=== PATIENT | female | born 1990 | race Caucasian/White ===

== ENCOUNTER 2021-07-08 15:02 | Emergency (ER) | payer OTHER, SELFPAY ==
[2021-07-08 15:48] VITALS: BP 95/67; PULSE 102; RESP 18; TEMP 37.7; O2SAT 98; BMI 21.4
[2021-07-08 16:13] LABS: MANUAL DIFF FLAG NO
[2021-07-08 16:15] LABS: Basophils Percent Auto 0.2 % (0-2); Eosinophils Absolute Auto 0.1 X10*3/uL (0.0-0.4); Eosinophils Percent Auto 1.1 % (0-4); Hematocrit 36.8 % (37.0-47.0); Hemoglobin 11.7 g/dl (12.0-16.0); Imm Gran Abs Auto 0.04 X10*3/uL (0.00-0.03); Imm Gran Pct Auto 0.3 % (0.0-0.4); Lymphocytes Absolute Auto 1.8 X10*3/uL (1.2-4.9); Lymphocytes Percent Auto 14.5 % (20-40); Mean Corpuscular HGB Conc 31.8 g/dl (31.0-35.0); Mean Corpuscular Hemoglobin 29.1 pg (27.0-33.0); Mean Corpuscular Volume 91.5 fL (80.0-98.0); Mean Platelet Volume 9.9 fL (9.4-12.3); Monocytes Absolute Auto 0.9 X10*3/uL (0.1-1.2); Neutrophils Absolute Auto 9.4 x10*3/uL (2.0-8.3); Neutrophils Percent Auto 76.9 % (45-73); Platelet Count 314 X10*3/uL (160-400); Red Blood Count 4.02 X10*6/uL (4.20-5.50); Red Cell Distribution Width 13.1 % (11.0-16.0); White Blood Count 12.3 X10*3/uL (4.8-10.8)
[2021-07-08 16:28] LABS: Lactic Acid 0.8 mmol/L (0.5-2.0)
[2021-07-08 16:34] LABS: Alanine Aminotransferase 18 U/L (0-31); Alkaline Phosphatase 60 U/L (39-117); Anion Gap 11 (12-20); Aspartate Amino Transferase 27 U/L (5-31); Blood Urea Nitrogen 10 mg/dL (9-16); Calcium 9.6 mg/dL (8.4-10.2); Carbon Dioxide 27 mmol/L (22-29); Chloride 105 mmol/L (96-108); Creatinine Clr Calc Pharmacy 69.9; Estimated Glomerular Filt Rate > 60; Glucose Random 91 mg/dL (60-115); Magnesium 2.2 mg/dL (1.6-2.6); Potassium 4.6 mmol/L (3.3-5.1); Sodium 138 mmol/L (135-145); Total Protein 7.7 g/dL (6.5-8.0)
--- NOTE | 2021-07-08 17:22 | ED_ITS ---
HPI - Skin/Abscess/Foreign Bdy General Chief complaint: Skin/Abscess/Foreign Body Stated complaint: painful areas all over Time Seen by Provider: 07/08/21 15:57 Source: patient Mode of arrival: ambulatory Limitations: no limitations History of Present Illness HPI narrative: 31-year-old female history of active IV drug use presents with multiple abscesses to her neck, face, scalp and arms. Wounds have been there a pproximately. No prior history abscesses like this in the past, and also reports dysuria. MD complaint: abscess/boil and lesion Onset (ago): day(s) (3) Tetanus up to date: no Location: face, neck, back, LUE and RUE Severity: moderate Severity scale (1-10): 5 Quality: aching Pain Consistency: constant Relieving factors: none Exacerbating factors: palpation and movement Context: IVDA Associated symptoms: other (Withdrawals) Treatments prior to arrival: attempted to drain pus at home Related Data Previous Rx's Medication Instructions Recorded amoxicillin 875 mg-potassium 1 tab PO Q12H 10 Days #20 tab 07/08/21 clavulanate 125 mg tablet (Augmentin) doxycycline monohydrate 100 mg 100 mg PO BID 10 Days #20 cap 07/08/21 capsule Allergies Allergy/AdvReac Type Severity Reaction Status Date / Time Unable to Assess Allergy Unverified 07/08/21 15:57 Review of Systems Review of Systems: Constitutional: Positive withdrawal symptoms, No Fever, positive Chills ENT/Mouth: No sore throat, No Rhinorrhea Eyes: No Eye Pain, No Swelling, No Redness Cardiovascular: No Chest Pain, No SOB Respiratory: No Cough, No Sputum Gastrointestinal: No Nausea, No Vomiting, No Diarrhea, No abdominal Pain Genitourinary: No Dysuria, No Hematuria Musculoskeletal: No joint pain, No Myalgias, No Joint Swelling Skin: Positive multiple Skin Lesions to the back of the neck, arms, face and scalp. No rash Neuro: No Weakness, No Numbness, No Loss of Consciousness, No Dizziness, No Headache Psych: No Anxiety, No Depression, No SI/HI/AH/VH Heme/Lymph: No Bruising, No Bleeding,No Lymphadenopathy Endocrine: No Polyuria, No Polydipsia Yes all other systems are reviewed and are negative PMFSH Past Medical History Attestation statement: The following information was validated with the patient. Source: old records reviewed Social History Social History Patient Tobacco Use Status: Current everyday Tobacco user Use of substances other than those prescribed or required for medical reasons: Yes Substance Use Type: Crack/Cocaine and Heroin Substance Use Frequency: Daily Substance Use Frequency Other:: last used was 07/08/21 at 0300 Advance Directives: No Advance Directives Information Provided: No Patient : No Physical Exam Vital Signs: Vital Signs: Last Vital Signs Temp 99 F 07/08/21 17:40 Pulse 96 07/08/21 18:11 Resp 18 07/08/21 18:11 BP 97/53 L 07/08/21 18:11 Pulse Ox 98 07/08/21 18:11 BMI result Body Mass Index 21.4 Appearance: Alert. Oriented X3. Moderate distress secondary withdrawal symptoms. Eyes: Pupils equal, round and reactive to light. Sclera nonicteric. EOMI. ENT: Pharynx normal. Dry mucous membranes. Neck: Normal inspection. Neck supple. Tenderness to the trapezius bilaterally, 1 cm area of induration with scabbed over draining pustule. Full range of motion, no nuchal rigidity. No vertebral step-offs. CVS: Tachycardic heart rate and rhythm. Brisk capillary refill to all extremities. Respiratory: No respiratory distress. Breath sounds normal. Abdomen: Soft and nontender. Skin: Skin warm and dry. Multiple track hunter to hands and arms. Multiple picking lesions to the arms bilaterally, right side of face, and back of neck. Extremities: No lower extremity edema. Gait well-balanced well coordinated. Neuro: No motor deficit. No sensory deficit. Cranial nerves 2-12 intact. Course Course Course Narrative: 31-year-old female presents with multiple areas of abscesses to her face, scalp, neck and arms. Has had these lesions for approximately 3 days. Also reports having dysuria but does not believe that she is at risk for STDs at this time. No purulent drainage from the abscess sites, there are pustules with scabbed head and they appear to have been draining. Patient has full range of motion, no nuchal rigidity, gait is well balanced well coordinated. Low likelihood of meningitis. White count 12.3, H&H 11.7/36. Chemistries are normal. Dr. Bhardwaj also at bedside to evaluate, and agrees with p.o. antibiotics. No imaging required at this as patient does have full range of motion with a low likelihood of meningitis or sepsis at this time. Patient does appear to be withdrawing. Was offered rehab-detox. Patient refused however I did ask high school assistant football coach to go and speak with her. Patient states that she does not have access to antibiotics. I did discuss this with case management, case management and high school assistant football coach will try to come up with a plan help her access medications. 5:40 p.m. high school assistant football coach discussed options with patient. She is open to rehab. Order for COVID testing, and Tdap vaccine will be updated at this time. Patient given p.o. fluids and sandwich. Suboxone started at this time. Last use was over 24 hours ago. 6:33 p.m. patient does have a place to stay overnight. Her plan is to present to the Suboxone clinic at this facility in the morning. Discharge her to home with her prescriptions so she can go to the pharmacy of her choosing. Patient verbalized understanding of and agrees to plan of care to discharge home MDM - Skin/Abscess/Foreign Bdy Differential Diagnosis Differential diagnosis: Likely abscess of skin or subcutaneous tissue and cellulitis Medical Records Attestation: I reviewed the patient's medical records. Lab Data Attestation: I reviewed the patient's lab results. Result diagrams: 07/08/21 16:08 07/08/21 16:08 Labs: Lab Results 07/08/21 07/08/21 07/08/21 Range/Units 16:08 16:08 16:08 WBC 12.3 H (4.8-10.8) X10*3/uL RBC 4.02 L (4.20-5.50) X10*6/uL Hgb 11.7 L (12.0-16.0) g/dl Hct 36.8 L (37.0-47.0) % MCV 91.5 (80.0-98.0) fL MCH 29.1 (27.0-33.0) pg MCHC 31.8 (31.0-35.0) g/dl RDW 13.1 (11.0-16.0) % Plt Count 314 (160-400) X10*3/uL MPV 9.9 (9.4-12.3) fL Immature Gran % (Auto) 0.3 (0.0-0.4) % Neut % (Auto) 76.9 H (45-73) % Lymph % (Auto) 14.5 L (20-40) % [place] % (Auto) 7.0 (2-11) % Eos % (Auto) 1.1 (0-4) % Baso % (Auto) 0.2 (0-2) % Lymph # (Auto) 1.8 (1.2-4.9) X10*3/uL [place] # (Auto) 0.9 (0.1-1.2) X10*3/uL Eos # (Auto) 0.1 (0.0-0.4) X10*3/uL Baso # (Auto) 0.0 (0.0-0.2) X10*3/uL Abs Immat Gran (auto) 0.04 H (0.00-0.03) X10*3/uL Absolute Neuts (auto) 9.4 H (2.0-8.3) x10*3/uL Absolute Nucleated RBC 0.000 (0.0-0.012) X10*3/uL Nucleated RBC % (auto) 0.0 (0.0-0.2) /100WBC Sodium 138 (135-145) mmol/L Potassium 4.6 (3.3-5.1) mmol/L Chloride 105 (96-108) mmol/L Carbon Dioxide 27 (22-29) mmol/L Anion Gap 11 L (12-20) BUN 10 (9-16) mg/dL Creatinine 0.81 (0.5-1.4) mg/dL Estim Creat Clear Calc 69.9 Estimated GFR > 60 Random Glucose 91 (60-115) mg/dL Lactic Acid 0.8 (0.5-2.0) mmol/L Calcium 9.6 (8.4-10.2) mg/dL Magnesium 2.2 (1.6-2.6) mg/dL Total Bilirubin 1.0 (0.0-1.0) mg/dL AST 27 (5-31) U/L ALT 18 (0-31) U/L Alkaline Phosphatase 60 (39-117) U/L Total Protein 7.7 (6.5-8.0) g/dL Albumin 4.0 (3.5-5.0) g/dL COVID-19 ([facility]) (Negative) COVID-19 Clin Com 07/08/21 Range/Units 18:04 WBC (4.8-10.8) X10*3/uL RBC (4.20-5.50) X10*6/uL Hgb (12.0-16.0) g/dl Hct (37.0-47.0) % MCV (80.0-98.0) fL MCH (27.0-33.0) pg MCHC (31.0-35.0) g/dl RDW (11.0-16.0) % Plt Count (160-400) X10*3/uL MPV (9.4-12.3) fL Immature Gran % (Auto) (0.0-0.4) % Neut % (Auto) (45-73) % Lymph % (Auto) (20-40) % [place] % (Auto) (2-11) % Eos % (Auto) (0-4) % Baso % (Auto) (0-2) % Lymph # (Auto) (1.2-4.9) X10*3/uL [place] # (Auto) (0.1-1.2) X10*3/uL Eos # (Auto) (0.0-0.4) X10*3/uL Baso # (Auto) (0.0-0.2) X10*3/uL Abs Immat Gran (auto) (0.00-0.03) X10*3/uL Absolute Neuts (auto) (2.0-8.3) x10*3/uL Absolute Nucleated RBC (0.0-0.012) X10*3/uL Nucleated RBC % (auto) (0.0-0.2) /100WBC Sodium (135-145) mmol/L Potassium (3.3-5.1) mmol/L Chloride (96-108) mmol/L Carbon Dioxide (22-29) mmol/L Anion Gap (12-20) BUN (9-16) mg/dL Creatinine (0.5-1.4) mg/dL Estim Creat Clear Calc Estimated GFR Random Glucose (60-115) mg/dL Lactic Acid (0.5-2.0) mmol/L Calcium (8.4-10.2) mg/dL Magnesium (1.6-2.6) mg/dL Total Bilirubin (0.0-1.0) mg/dL AST (5-31) U/L ALT (0-31) U/L Alkaline Phosphatase (39-117) U/L Total Protein (6.5-8.0) g/dL Albumin (3.5-5.0) g/dL COVID-19 ([facility]) Negative (Negative) COVID-19 Clin Com See Note Discharge Plan Discharge Clinical Impression: Cellulitis Qualifiers: Site of cellulitis: other site Qualified Code(s): L03.818 - Cellulitis of other sites Abscess of skin or subcutaneous tissue Qualifiers: Site of cutaneous abscess: unspecified site Qualified Code(s): L02.91 - Cutaneous abscess, unspecified UTI (urinary tract infection) Qualifiers: Urinary tract infection type: site unspecified Hematuria presence: without hematuria Qualified Code(s): N39.0 - Urinary tract infection, site not specified Patient Disposition: Home, Self-Care Instructions: Urinary Tract Infection in Women (ED), Cellulitis (ED), Abscess (ED) Additional Instructions: You wereevaluated for multiple areas of draining abscess and cellulitis to your skin. Please take doxycycline 100 mg twice a day for 10 days. Please take Augmentin 875 mg twice a day for the next 10 days. These medications will also cover for your suspected urinary tract infection. Please present to the Suboxone clinic tomorrow morning. Your COVID test was negative. We updated your Tdap vaccine today. Thank you for choosing this emergency department for evaluation. Please follow-up with primary care physician as needed. Return to the emergency department for any new, concerning, or worsening symptoms. Prescriptions: New doxycycline monohydrate 100 mg capsule 100 mg PO BID 10 Days Qty: 20 RF: 0 amoxicillin-pot clavulanate [Augmentin] 875-125 mg tablet 1 tab PO Q12H 10 Days Qty: 20 RF: 0
[2021-07-08 17:40] VITALS: BP 89/44; PULSE 95; RESP 20; TEMP 37.2; O2SAT 98
[2021-07-08 18:11] VITALS: BP 97/53; PULSE 96; RESP 18; O2SAT 98
[2021-07-08] MEDS: diphenhydrAMINE HCL 25 MG TABLET 50 MG PO (18:14)
[2021-07-08] MEDS: Acetaminophen 325 MG TABLET 650 MG PO (18:14)
[2021-07-08] MEDS: Amoxicillin/Potassium Clav 875 MG TABLET PO (18:15)
[2021-07-08] MEDS: Ondansetron ODT 4 MG TAB.RAPDIS TRANSLINGU (18:15)
[2021-07-08] MEDS: Diphth,Pertus(ACell),Tet Adult 0.5 ML SYRINGE IM (18:15)
--- NOTE | 2021-07-08 18:15 | PC.NURSE ---
pt resting in the stretcher, respirations even and unlabored. pt reports last use of heroin was yesterday around 0300, pt does have some abscess on her lower neck upper back area. pain at 9/10. academic coach at bedside speaking to pt, plan for the pt to follow up with suboxone clinic
[2021-07-08] MEDS: Buprenorphine/Naloxone 8/2 mg FILM 1 FILM SUBLINGUAL (18:16)
--- NOTE | 2021-07-08 18:21 | MHC.RECOVSUP ---
? Reason for consult:Recovery Support o?? Current location ED14? o?? Identified substance use concern ?Heroine ?? Withdrawal ?? Support ? Intervention: o?? MAT started or to be started o?? Community resources provided o?? Harm reduction discussion ? Plan: o?? Referral to [facility] o?? Follow up tomorrow? o?? Patient to follow up with [facility] after discharge ? Additional information: Pt. came in with symptoms of withdrawals I was able to advocate for the Pt. Doctor gave her 8mg of suboxzone Informed Pt. about [facility] program Pt. stated that she will go tomorrow to start her suboxzone at [facility].Also gave information about [facility] and other resources. ?
[2021-07-08 18:26] LABS: COVID-19 Test Negative (Negative)
[2021-07-08 20:00] VITALS: BP 97/53; PULSE 96; RESP 18; TEMP 36.6; O2SAT 98
[2021-07-08 22:21] VITALS: BP 96/68; PULSE 79; RESP 16; TEMP 37.1; O2SAT 98
[2021-07-08 23:52] VITALS: BP 95/53; PULSE 78; RESP 16; TEMP 36.9; O2SAT 100
== END 2021-07-09 00:31 | disposition home or self-care (01) ==
PROVIDERS: Nurse Practitioner Family; Physician Assistant; Emergency Provider Internal Medicine
DX: S10.91XA Abrasion of unspecified part of neck, initial encounter (principal); L03.818 Cellulitis of other sites; L02.91 Cutaneous abscess, unspecified; N39.0 Urinary tract infection, site not specified; F11.10 Opioid abuse, uncomplicated; F14.10 Cocaine abuse, uncomplicated; X58.XXXA Exposure to other specified factors, initial encounter; Y93.9 Activity, unspecified; Y92.9 Unspecified place or not applicable; Y99.9 Unspecified external cause status; Z20.822 Contact with and (suspected) exposure to COVID-19; Z79.899 Other long term (current) drug therapy
CPT/HCPCS: 36415; 80053; 83605; 83735; 85025; 87040; 87635; 90471; 90715; 99284; Q0163